=== PATIENT | male | born 1950 | race Caucasian/White ===

== ENCOUNTER 2020-12-21 13:56 | Observation (INO) | payer MEDICARE, OTHER ==
[~2020-12-21] VITALS: Ht 180.3 cm; Wt 74.0 kg
[~2020-12-21 13:56] MED LIST: LOPRESSOR25 MG PO; NITROGLYCER0.4 MG SL; NO HOME MEDS
--- NOTE | 2020-12-21 14:00 | NUR ---
TO ROOM FOR TRIAGE
[2020-12-21 16:00] LABS: URINE BILIRUBIN - DIPSTICK NEGATIVE (NEGATIVE); URINE BLOOD DIPSTICK NEGATIVE (NEGATIVE); URINE COLOR YELLOW; URINE GLUCOSE - DIPSTICK NEGATIVE (NEGATIVE); URINE KETONE NEGATIVE (NEGATIVE); URINE LEUK ESTERASE NEGATIVE (NEGATIVE); URINE PROTEIN - DIPSTICK NEGATIVE (NEG-TRACE); URINE SPECIFIC GRAVITY <=1.005; URINE UROBILINOGEN - DIPSTICK 0.2 E.U./dL (0.2)
[2020-12-21 16:04] LABS: URINE NITRITE - DIPSTICK NEGATIVE (Negative)
[2020-12-21 17:14] LABS: HEMATOCRIT 42.4 % (39.0-50.0); HEMOGLOBIN 13.2 g/dl (14.0-18.0); IMMATURE GRANULOCYTES 0.2 % (0.0-5.0); MEAN CORPUSCULAR HGB 31.1 pG CALC (26.0-32.0); MEAN CORPUSCULAR HGB CONC 31.1 g/dL CAL (32.0-36.0); NEUT# 2.07 thou/uL (1.82-7.42); RED BLOOD COUNT 4.24 mill/uL (4.70-6.10); RED CELL DISTRI WIDTH 12.7 % (11.5-15.5)
[2020-12-21 17:27] LABS: ALKALINE PHOSPHATASE 55 u/l (38-126); BUN 13 mg/dL (8-23); BUN/CREATININE RATIO 19 (12-20 (CALC)); CREATININE 0.7 mg/dL (0.7-1.3); GFR > 60 ML/MIN (>=60 (CALC)); GFR FOR AFR.AMER. > 60 ML/MIN (>=60 (CALC)); LIPASE 73 u/l (23-300); POTASSIUM 4.7 mmol/l (3.5-5.1); SGOT/AST 23 u/l (19-48); SODIUM 135 mmol/l (137-146)
[2020-12-21 17:28] LABS: D-DIMER 0.39 mg/L (0.19-0.60)
[2020-12-21 17:31] LABS: ANION GAP 13 (6-22 (CALC)); BILIRUBIN, TOTAL 1.3 mg/dL (0.0-1.4); CARBON DIOXIDE 29 mmol/l (22-30); CHLORIDE 98 mmol/l (95-108); TOTAL PROTEIN 7.3 g/dL (6.3-8.2)
[2020-12-21 17:32] LABS: ACT PARTIAL THROMBO TIME 23.5 SECONDS (20.0-32.5)
[2020-12-21 17:39] LABS: MYOGLOBIN 68 ng/mL (0 - 121)
--- NOTE | 2020-12-21 18:35 | NUR ---
RN WAITING TO THE MD INSERT A CENTRAL LINE
--- NOTE | 2020-12-21 18:54 | NUR ---
RN WAITING IN THE MD TO INSERT A CENTRAL LINE
[2020-12-21] MEDS ORDERED: DOK100 M1 PO (19:31)
[2020-12-21] MEDS ORDERED: CELEBREX100 MG PO (19:31)
[2020-12-21] MEDS ORDERED: ELIQUIS5 MG PO (19:32)
[2020-12-21] MEDS ORDERED: FUROSEMIDE20 MG PO (19:32)
[2020-12-21] MEDS ORDERED: MIDODRINE HYDR2.5 MG PO (19:33)
[2020-12-21] MEDS ORDERED: PROTONIX40 M2 PO (19:34)
[2020-12-21] MEDS ORDERED: ZOFRAN4 MG/TAB PO (19:35)
--- NOTE | 2020-12-21 21:58 | NUR ---
RN GIVE REPORT TO FLAKITA BALDERRAMA
--- NOTE | 2020-12-21 22:20 | NUR ---
TRANSPORTED PT FOR NURSE TO 277 VIA WHEELCHAIR AND CLIENT ACCOUNT SPECIALIST. INFORMED CONCHIS CANADA PT WENT STRAIGHT TO THE BATHROOM
[2020-12-21 22:30] VITALS: BP 136/60
--- NOTE | 2020-12-21 22:30 | NUR ---
Received report from Miguel A GUPTA-RN at 21:45 and Pt arrived at 22:30. Pt alert, awake, cooperative. Oriented to person, time and place. Vitals signs are stable, no complain about chest pain or any pain at this time. Pt refused stool softener, LBM was 12/20/20 per PT report. Personal belongs at bed side wallet, pants, shoes and cell phone. Educated PT about Med-Surg rules, to call the nurse for asistant, to use call light. Educated about falls and safety precautions, medications and plan of care. PT observed with right yugular iv, flushed, patent, clean and intact. (Hard Stick PT). Jostin Ingram his brother are aware about this hospitalization per PT report.
[2020-12-22] VITALS: BP 98/59
[2020-12-22 04:00] VITALS: BP 98/65
--- NOTE | 2020-12-22 05:33 | NUR ---
Pt has A-Fib history. From ED Telemetry report at 00:00 are A-Flutter, PT refused any chest pain, pain or any symtons. Vitals are stable, 2nd Troponin are same result 0.012. From 4:00am still on A. Flutter asymtomptomatic. Pt with cardiology consult pending for today. Report pass to day shift on [place] to follow up.
--- NOTE | 2020-12-22 06:45 | NUR ---
REPORT RECEIVED FROM FLAKITA. CARE ASSUMED.
[2020-12-22 07:30] VITALS: BP 96/66
--- NOTE | 2020-12-22 07:30 | NUR ---
PT RESTING IN BED AWAKRE. PT IS ALERT AND ORIENTED X3. SHIFT ASSESSMENT COMPLETED AT THIS TIME. IV PATENT X1. PT REFUSING TO HAVE AM LABS DONE AT THIS TIME STATING THAT THERE IS NOTHING WRONG WITH HIM AND HE JUST WANTS TO GO BACK TO THE [facility]. CALL LIGHT IN REACH. WILL CONTINUE TO MONTIOR.
--- NOTE | 2020-12-22 09:21 | NUR ---
I V SITE DC'D DUE TO BEING OCCLUDED PT REFUSING A NEW IV SITE AT THIS TIME. PT REFUSED PROTONIX AND COLACE AT THIS TIME WELL
[2020-12-22 10:50] VITALS: BP 96/66
--- NOTE | 2020-12-22 11:13 | NUR ---
PT RESTING IN BED WATCHING TV. RESP ARE EVEN AND UNLABORED AT THIS TIME. NO DISTRESS NOTED. CALL LIGHT IN REACH. WILL CONTINUE TO MONITOR.
--- NOTE | 2020-12-22 12:06 | NUR ---
PHONED TU [facility] TO ARRANGE FOR PATIENT TO BE PCIKED UP. THEY STATED THEY WOULD BE HERE AFTER LUNCH.
--- NOTE | 2020-12-22 12:10 | NUR ---
DISCHARGE INSTRUCTIONS REVIEWED WITH PATIENT. PATIENT VERBALIZED UNDERSTANDING. PATIENT WILL FINISH LUNCH THEN GET DRESSED HE STATES. CALL LIGHT IN REACH TO CALL FOR ASSISTANCE. WILL CONTINUE TO MONITOR
--- NOTE | 2020-12-22 12:23 | NUR ---
Discharge instructions given. Patient verbalizes understanding of same. Discharged in stable condition via Wheelchair to Home with staff. All belongings sent with pt.
== END 2020-12-22 12:23 ==
LOC: ED 13:56 → ED-I 18:43 → ED 18:45 → MS2 18:55
PROVIDERS: Family Medicine; ADMIT Internal Medicine; ATTEND Internal Medicine
DX: R07.89 Other chest pain (principal); I10 Essential (primary) hypertension; I48.91 Unspecified atrial fibrillation; K21.9 Gastro-esophageal reflux disease without esophagitis; M62.40 Contracture of muscle, unspecified site; I95.89 Other hypotension; Z20.822 Contact with and (suspected) exposure to COVID-19
CPT/HCPCS: G0378; S0164

== ENCOUNTER 2021-01-16 11:44 | Observation (INO) | payer MEDICARE, OTHER ==
[~2021-01-16] VITALS: Ht 180.3 cm; Wt 79.0 kg
[~2021-01-16 11:44] MED LIST changes: +CELEBREX100 MG PO; +DOK100 M1 PO; +ELIQUIS5 MG PO; +FUROSEMIDE20 MG PO; +MIDODRINE HYDR2.5 MG PO; +PROTONIX40 M2 PO; +ZOFRAN4 MG/TAB PO
--- NOTE | 2021-01-16 11:45 | NUR ---
PT AOX3, STATES MIDSTERNAL CP, 12/02, WAS GIVEN ASA AND NITRO IN ROUTE AFIB ON MONITOR, AT BEDSIDE
[2021-01-16 12:49] LABS: HEMOGLOBIN 12.7 g/dl (14.0-18.0); MEAN CELL VOLUME 99.3 fL CALC (80.0-100.0); MEAN CORPUSCULAR HGB 30.8 pG CALC (26.0-32.0); NEUT# 2.46 thou/uL (1.82-7.42); RED BLOOD COUNT 4.13 mill/uL (4.70-6.10)
[2021-01-16 12:58] LABS: ALBUMIN 3.8 g/dL (3.2-5.0); ALKALINE PHOSPHATASE 51 u/l (38-126); ANION GAP 11 (6-22 (CALC)); BILIRUBIN, TOTAL 0.9 mg/dL (0.0-1.4); BUN 15 mg/dL (8-23); BUN/CREATININE RATIO 15 (12-20 (CALC)); CARBON DIOXIDE 28 mmol/l (22-30); CHLORIDE 101 mmol/l (95-108); GFR > 60 ML/MIN (>=60 (CALC)); GFR FOR AFR.AMER. > 60 ML/MIN (>=60 (CALC)); POTASSIUM 4.7 mmol/l (3.5-5.1); SGOT/AST 21 u/l (19-48); SODIUM 135 mmol/l (137-146); TOTAL PROTEIN 6.8 g/dL (6.3-8.2)
--- NOTE | 2021-01-16 13:58 | NUR ---
PT RESTING IN BED, AWAITING BED ASSIGNMENT
--- NOTE | 2021-01-16 16:03 | NUR ---
PT SITTING IN BED AWAITING A BED ASSIGNMENT AN ER HOLD. VSS AND NO COMPLAINTS OF PAIN AT THIS TIME
--- NOTE | 2021-01-16 18:48 | NUR ---
PT RESTING IN BED, ATE DINNER AND IS COMFORTABLE AT THIS TIME
--- NOTE | 2021-01-16 19:15 | NUR ---
GAVE REPORT TO NANCIE RN, PT TRANSPORT IN WHEELCHAIR WITH SILK SCREEN PAINTER TO FLOOR
[2021-01-16 19:55] VITALS: BP 134/84
--- NOTE | 2021-01-16 19:55 | NUR ---
PT RECEIVED FROM ED TO ROOM 261. ARRIVES VIA STRETCHER ACCOMPANIED BY ED RN. PT AMBULATORY TO BED. GAIT UNSTEADY. PT DENIES PAIN AT THIS TIME. ORIENTED TO UNIT, ROOM, CALL PEÑALOZA, LIGHTS, TV. ICE WATER PROVIDED. CALL PEÑALOZA WITHIN REACH. AGREES TO CALL PRN.
[2021-01-17] VITALS: BP 128/70
--- NOTE | 2021-01-17 04:11 | NUR ---
PT RESTING IN BED, NO SIGNS OF DISTRESS NOTED, RESP EVEN AND UNLABORED. PT VOICES NO NEEDS OR COMPLAINTS AT THIS TIME. CALL LIGHT IN REACH, CONTINUE TO MONITOR.
[2021-01-17 04:18] VITALS: BP 115/61
--- NOTE | 2021-01-17 07:00 | NUR ---
REPORT RECEIVED FROM CONCHIS CANADA
[2021-01-17 08:18] VITALS: BP 106/68
--- NOTE | 2021-01-17 08:20 | NUR ---
PT RESTING IN SEMI FOWLERS POSITION,A&O X3;VS OBTAINED AND ASSESSMENT COMPLETED;PT DENIES ANY CURRENT PAIN OR DISCOMFORTS,PAIN SCALE AND REPORTING EDUCATED;RESPIRATIONS EVEN AND UNLABORED ON RA,CLEAR LUNG SOUNDS;ABDOMEN SOFT ON PALPATION AND ACTIVE IN ALL 4 QUADRANTS;WEAK PEDAL PULSES WITH +2 EDEMA NOTED TO BLE;SKIN INTACT;TELE MONITORING IN PLACE;#22G TO PRABHAKAR FLUSHED AND PATENT,SITE APPEARS HEALTHY;PT DENIES ANY ADDITIONAL NEEDS AND IS ENCOURAGED TO CALL FOR ASSISTANCE IF NEEDED;FALL PRECAUTIONS IN PLACE WITH BED IN THE LOWEST POSITION AND CALL LIGHT IN REACH;WILL CONTINUE TO MONITOR
--- NOTE | 2021-01-17 09:36 | NUR ---
AT BEDSIDE DISCUSSING POC.
[2021-01-17 10:30] VITALS: BP 98/67
--- NOTE | 2021-01-17 11:30 | NUR ---
PT RESTING IN SEMI FOWLERS POSITION;RESPIRATIONS EVEN AND UNLABORED ON RA;PT DENIES ANY CURRENT PAIN OR NEEDS;TELE MONITORING IN PLACE;IV SITE PATENT;PT DENIES ANY ADDITIONAL NEEDS AND IS ENCOURAGED TO CALL FOR ASSISTANCE IF NEEDED;CALL LIGHT IN REACH;WILL CONTINUE TO MONITOR
--- NOTE | 2021-01-17 14:18 | NUR ---
CALLED PLACED TO [facility] REGARDING PT DISCHARGE.SPOKE WITH ROLANDO AND GAVE REPORT.PER ROLANDO PT TO BE PICKED UP BY [facility] STAFF AT APPROX 1430.
--- NOTE | 2021-01-17 14:25 | NUR ---
ALL DISCHARGE INSTRUCTIONS PROVIDED AT THIS TIME.PT INSTRUCTED TO F/U WITH PCP AND CONTINUE ALL ROUTINE MEDICATIONS,PT VERBALIZES UNDERSTANDING;IV SITE REMOVED WITH CATHETER INTACT AND TELE MONITORING D/C AT THIS TIME;PT DENIES ANY ADDITIONAL QUESTIONS OR NEEDS;WC TO BE PROVIDED FOR D/C HOME TO THE [facility];WILL CONTINUE TO MONITOR
--- NOTE | 2021-01-17 14:30 | NUR ---
Discharge instructions given. Patient verbalizes understanding of same. Discharged in stable condition via Wheelchair to [facility] with *Other. All belongings sent with pt. PT TRANSPORTED TO [facility] IN STABLE CONDITION VIA ACCOMPANIED DONNA LUTHER FOR D/C TO THE [facility].ALL BELONGINGS LEFT WITH PT.
== END 2021-01-17 14:36 ==
LOC: ED 11:44 → ED-I 13:32 → ED 13:52 → ED-I 13:53 → MS2 13:53
PROVIDERS: Family Medicine; ADMIT Internal Medicine; ATTEND Internal Medicine
DX: R07.89 Other chest pain (principal); I11.0 Hypertensive heart disease with heart failure; I50.9 Heart failure, unspecified; I48.91 Unspecified atrial fibrillation; K21.9 Gastro-esophageal reflux disease without esophagitis; Z79.01 Long term (current) use of anticoagulants; Z20.822 Contact with and (suspected) exposure to COVID-19
CPT/HCPCS: G0378; J1650

== ENCOUNTER 2021-01-24 13:50 | Observation (INO) | payer MEDICARE, OTHER ==
[~2021-01-24] VITALS: Ht 180.3 cm; Wt 79.0 kg
[2021-01-24 15:27] LABS: HEMATOCRIT 42.3 % (39.0-50.0); HEMOGLOBIN 13.2 g/dl (14.0-18.0); MEAN CELL VOLUME 96.6 fL CALC (80.0-100.0); MEAN CORPUSCULAR HGB 30.1 pG CALC (26.0-32.0); MEAN CORPUSCULAR HGB CONC 31.2 g/dL CAL (32.0-36.0); NEUT# 2.36 thou/uL (1.82-7.42); RED BLOOD COUNT 4.38 mill/uL (4.70-6.10); RED CELL DISTRI WIDTH 12.9 % (11.5-15.5)
[2021-01-24 15:47] LABS: PROTHROMBIN TIME 10.6 SECONDS (9.0-12.5)
[2021-01-24 15:51] LABS: ALBUMIN 4.2 g/dL (3.2-5.0); ALKALINE PHOSPHATASE 53 u/l (38-126); ANION GAP 11 (6-22 (CALC)); BILIRUBIN, TOTAL 1.1 mg/dL (0.0-1.4); BUN 15 mg/dL (8-23); BUN/CREATININE RATIO 18 (12-20 (CALC)); CARBON DIOXIDE 31 mmol/l (22-30); CHLORIDE 97 mmol/l (95-108); CREATININE 0.8 mg/dL (0.7-1.3); GFR > 60 ML/MIN (>=60 (CALC)); GFR FOR AFR.AMER. > 60 ML/MIN (>=60 (CALC)); LIPASE 40 u/l (23-300); POTASSIUM 4.4 mmol/l (3.5-5.1); SGOT/AST 24 u/l (19-48); SODIUM 134 mmol/l (137-146); TOTAL PROTEIN 7.3 g/dL (6.3-8.2)
[2021-01-24 23:30] VITALS: BP 147/77
[2021-01-25 04:00] VITALS: BP 140/71
[2021-01-25 06:48] LABS: ANION GAP 10 (6-22 (CALC)); BUN 12 mg/dL (8-23); BUN/CREATININE RATIO 18 (12-20 (CALC)); CARBON DIOXIDE 29 mmol/l (22-30); CHLORIDE 101 mmol/l (95-108); CHOLESTEROL HDL RATIO 3.2 (<4.4 (CALC)); CREATININE 0.7 mg/dL (0.7-1.3); GFR > 60 ML/MIN (>=60 (CALC)); GFR FOR AFR.AMER. > 60 ML/MIN (>=60 (CALC)); HDL CHOLESTEROL 54 mg/dL (>=40); POTASSIUM 4.1 mmol/l (3.5-5.1); SODIUM 136 mmol/l (137-146); TOTAL TRIGLYCERIDES 65 mg/dl (30-149); VLDL CHOLESTROL 13 mg/dl (4-45 (CALC))
[2021-01-25 06:59] LABS: HEMATOCRIT 38.6 % (39.0-50.0); HEMOGLOBIN 12.3 g/dl (14.0-18.0); MEAN CORPUSCULAR HGB 30.9 pG CALC (26.0-32.0); MEAN CORPUSCULAR HGB CONC 31.9 g/dL CAL (32.0-36.0); RED BLOOD COUNT 3.98 mill/uL (4.70-6.10)
[2021-01-25 07:10] LABS: CALCULATED LDLCHOLESTEROL 105 mg/dL (62-129 (CALC)); TOTAL CHOLESTEROL 172 mg/dl (0-199)
[2021-01-25 07:42] VITALS: BP 123/73
[2021-01-25 10:42] VITALS: BP 109/70
[2021-01-25 15:13] VITALS: BP 102/62
== END 2021-01-25 15:58 ==
LOC: ED 13:50 → ED-I 18:18 → ED 18:30 → MS2 18:31
PROVIDERS: Family Medicine; ADMIT Hospitalist; ATTEND Hospitalist
PROC: 02HV33Z Insertion of Infusion Device into Superior Vena Cava, Percutaneous Approach (ICD-10-PCS; principal; 2021-01-24)
PROC: B548ZZA Ultrasonography of Superior Vena Cava, Guidance (ICD-10-PCS; 2021-01-24)
DX: R07.89 Other chest pain (principal); K92.0 Hematemesis; K56.41 Fecal impaction; I48.20 Chronic atrial fibrillation, unspecified; I10 Essential (primary) hypertension; K21.9 Gastro-esophageal reflux disease without esophagitis; M62.40 Contracture of muscle, unspecified site; Z79.01 Long term (current) use of anticoagulants; Z20.822 Contact with and (suspected) exposure to COVID-19
CPT/HCPCS: G0378

== ENCOUNTER 2021-02-10 12:04 | Observation (INO) | payer MEDICARE, OTHER ==
[~2021-02-10] VITALS: Ht 180.3 cm; Wt 78.0 kg
--- NOTE | 2021-02-10 12:05 | NUR ---
TO ROOM FOR TRIAGE
[2021-02-10] MEDS ORDERED: FAMOTIDINE20 M1 PO (12:20)
[2021-02-10] MEDS ORDERED: TRAMADOL HCL50 MG PO (12:21)
[2021-02-10 12:43] LABS: URINE BLOOD DIPSTICK NEGATIVE (NEGATIVE); URINE COLOR YELLOW; URINE GLUCOSE - DIPSTICK NEGATIVE (NEGATIVE); URINE KETONE TRACE mg/dL (NEGATIVE); URINE LEUK ESTERASE NEGATIVE (NEGATIVE); URINE PH 6.5 (4.5-8.0); URINE PROTEIN - DIPSTICK NEGATIVE (NEG-TRACE)
[2021-02-10 12:48] LABS: URINE BILIRUBIN - DIPSTICK SMALL (NEGATIVE)
[2021-02-10 12:49] LABS: URINE NITRITE - DIPSTICK NEGATIVE (Negative)
[2021-02-10 13:30] LABS: HEMATOCRIT 42.4 % (39.0-50.0); HEMOGLOBIN 13.9 g/dl (14.0-18.0); IMMATURE GRANULOCYTES 0.7 % (0.0-5.0); MEAN CORPUSCULAR HGB 30.5 pG CALC (26.0-32.0); MEAN CORPUSCULAR HGB CONC 32.8 g/dL CAL (32.0-36.0); NEUT# 6.82 thou/uL (1.82-7.42); RED BLOOD COUNT 4.56 mill/uL (4.70-6.10); RED CELL DISTRI WIDTH 13.8 % (11.5-15.5)
[2021-02-10 13:37] LABS: ALKALINE PHOSPHATASE 57 u/l (38-126); AMYLASE 70 u/l (30-110); ANION GAP 11 (6-22 (CALC)); BUN 24 mg/dL (8-23); BUN/CREATININE RATIO 38 (12-20 (CALC)); CARBON DIOXIDE 29 mmol/l (22-30); CHLORIDE 96 mmol/l (95-108); CREATININE 0.6 mg/dL (0.7-1.3); GFR > 60 ML/MIN (>=60 (CALC)); GFR FOR AFR.AMER. > 60 ML/MIN (>=60 (CALC)); LIPASE 45 u/l (23-300); POTASSIUM 3.8 mmol/l (3.5-5.1); SODIUM 132 mmol/l (137-146); TOTAL PROTEIN 7.2 g/dL (6.3-8.2)
[2021-02-10 13:38] LABS: BILIRUBIN, TOTAL 2.4 mg/dL (0.0-1.4); SGOT/AST 46 u/l (19-48)
--- NOTE | 2021-02-10 19:00 | NUR ---
REPORT REC'D AND CARE ASSUMED, PT RESTING ON STRETCHER, MEAL TRAY ASSIST PROVIDED, CALL PEÑALOZA WITHIN REACH, PT AWARE OF ADMIT HOLD IN ER RELATED TO NO TELEMETRY AVAILABLE, WILL CONTINUE TO MONITOR.
--- NOTE | 2021-02-10 20:10 | NUR ---
PT RESTING AWARE OF CHANGE RELATED TO ROOM ASSIGNEMTN REC'D. CALL PEÑALOZA WITHIN REACH
--- NOTE | 2021-02-10 21:07 | NUR ---
PT RECEIVED FROM ED TO ROOM 277. ARRIVES VIA WC ACCOMPANIED BY ED RN. PT AMBULATORY TO BED. GAIT UNSTEADY. PT DENIES PAIN AT THIS TIME. ORIENTED TO UNIT, ROOM, CALL PEÑALOZA, LIGHTS, TV. ICE WATER PROVIDED. CALL PEÑALOZA WITHIN REACH. AGREES TO CALL PRN.
--- NOTE | 2021-02-10 21:10 | NUR ---
PT TRANSPORTED TO [facility] VIA WHEELCHAIR, ALL BELONGING SENT WITH PATIENT.
--- NOTE | 2021-02-10 21:10 | NUR ---
PT TRANSFERREDTO MED SURG VIA WHEELCHAIR PT ABLE TO STAND AND TRASNFER WITH STEADY GAIT. ADMISSION ASSESSMENT COMPLETED AND REPOSRT CALLED TO NANCIE BALDERRAMA ON MED SURG, ROOM AND TELE ASSIGNMENT REC'D. SAFETY MEASURES REINFORCED, CALL PEÑALOZA WITHIN REACH.
--- NOTE | 2021-02-11 00:01 | NUR ---
PT LAYING IN BED WITH EYES CLOSED, APPEARS TO BE SLEEPING, APPEARS COMFORTABLE AND IN NO DISTRESS. RESPIRATIONS REGULAR AND UNLABORED. ITEMS REMAIN WITHIN REACH, CALL PEÑALOZA REMAINS WITHIN REACH. BED REMAINS LOCKED AND IN LOW POSITION WITH BEDRAILS UP X2. WILL CONTINUE TO MONITOR.
--- NOTE | 2021-02-11 03:53 | NUR ---
PT RESTING IN BED, NO SIGNS OF DISTRESS NOTED, RESP EVEN AND UNLABORED. PT VOICES NO NEEDS OR COMPLAINTS AT THIS TIME. CALL LIGHT IN REACH, CONTINUE TO MONITOR.
[2021-02-11 04:00] VITALS: BP 126/78
[2021-02-11 06:21] LABS: HEMATOCRIT 43.1 % (39.0-50.0); HEMOGLOBIN 14.1 g/dl (14.0-18.0); MEAN CELL VOLUME 93.7 fL CALC (80.0-100.0); MEAN CORPUSCULAR HGB 30.7 pG CALC (26.0-32.0); MEAN CORPUSCULAR HGB CONC 32.7 g/dL CAL (32.0-36.0); RED BLOOD COUNT 4.6 mill/uL (4.70-6.10); RED CELL DISTRI WIDTH 13.8 % (11.5-15.5)
[2021-02-11 06:30] LABS: ANION GAP 10 (6-22 (CALC)); BUN 24 mg/dL (8-23); BUN/CREATININE RATIO 39 (12-20 (CALC)); CARBON DIOXIDE 28 mmol/l (22-30); CHLORIDE 98 mmol/l (95-108); CREATININE 0.6 mg/dL (0.7-1.3); GFR > 60 ML/MIN (>=60 (CALC)); GFR FOR AFR.AMER. > 60 ML/MIN (>=60 (CALC)); MAGNESIUM 2.2 mg/dL (1.6-2.3); POTASSIUM 3.8 mmol/l (3.5-5.1); SODIUM 133 mmol/l (137-146)
[2021-02-11 07:40] VITALS: BP 113/70
--- NOTE | 2021-02-11 07:48 | NUR ---
PT MEDICATED ORDERS PROVIDE. ASSISTED WITH ICE FOR HIS SODA. ASSESSMENT COMPLETED ALSO AT THIS TIME.
[2021-02-11] MEDS ORDERED: DOK100 M1 PO (09:29)
[2021-02-11] MEDS ORDERED: POLYETHYLENE GL17 GM PO (09:30)
--- NOTE | 2021-02-11 09:49 | NUR ---
PT AGREED TO SUPPOSITORY PER ORDERS, PROVIDED THIS AND MIRLAX W/GRAPE JUICE OF CHOICE. PT TOLERATED SUPPOSITORY PLACEMENT WELL. HE WAS ALSO PROVIDED SAVI-CARE AND STOOL CLEAN UP CARE AT THIS TIME. ASSISTED REPOSITIONING IN THE BED AND INSTRUCTED TO CALL HE NEEDS HELP. BSC PLACED NEXT TO BED FOR STOOL OUTPUT CARE.
--- NOTE | 2021-02-11 12:32 | NUR ---
ASSISTING PT TO EAT. HE IS UNABLE TO FEED HIMSELF DUE TO BEING UNABLE TO LIFT ARMS. I DISCUSSED THIS WITH THE PT AND HE STATES THAT HE JUST WOKE UP THAT WAY ONE MORNING A FEW MONTHS AGO. [facility]ICKEN BROTH PROVIDED WITH A STRAW AND ENSURE.
--- NOTE | 2021-02-11 13:25 | NUR ---
SSE ADMINISTERED AT THIS TIME. PT TOLERATED WELL, CALL LIGHT IN HAND AND PT ENCOURAGED TO CALL WHEN HE FEELS THE NEED TO GET TO THE BSC, VERBALIZED AGREEMENT.
--- NOTE | 2021-02-11 14:09 | NUR ---
VERY LARGE AMOUNT OF HARD BROWN STOOL OUTPUT. SECOND SSE ADMINISTERED WITH WATERY OUTPUT. PT TOLERATED WELL AND SAID IT FEELS LIKE HE STILL NEEDS TO GO MORE.
[2021-02-11 15:16] VITALS: BP 119/73
--- NOTE | 2021-02-11 15:26 | NUR ---
PT STATED HE FELT LIKE HE MAY HAVE MORE STOOL. SSE ADMINISTERED AT THIS TIME PER REQUEST AND ORDERS ALLOW. SMALL AMOUNTS OF BROWN STOOL OUT W. LARGE AMOUNT OF CLEAR FLUID. SUPERCALENDER OPERATOR NOTIFIED.
--- NOTE | 2021-02-11 15:59 | NUR ---
PT ESCORTED OFF OF MED SURG UNIT VIA WC ACCOMPANIED BY [facility] STAFF. PT IS IN GOOD CONDITION UPON LEAVING. NO S/O DISTRESS NOTED AT THIS TIME.
== END 2021-02-11 15:56 ==
LOC: ED 12:04 → ED-I 13:02 → ED 13:02 → ED-I 15:19 → ED 15:32 → ED-I 15:33 → MS2 19:59
PROVIDERS: ADMIT Hospitalist; ATTEND Hospitalist
DX: K59.00 Constipation, unspecified (principal); I10 Essential (primary) hypertension; I48.91 Unspecified atrial fibrillation; K21.9 Gastro-esophageal reflux disease without esophagitis; E86.0 Dehydration; M62.40 Contracture of muscle, unspecified site; Z20.822 Contact with and (suspected) exposure to COVID-19
CPT/HCPCS: J1650